=== PATIENT | female | born 1970 | race Caucasian/White ===

== ENCOUNTER 2023-09-04 15:41 | Inpatient (IN) | payer BC, MEDICAID, SELFPAY ==
--- NOTE | 2023-09-04 17:40 | PC.NURSE ---
This nurse assumed care of pt from EMS at 1737.
[2023-09-04 17:54] VITALS: BMI 40.6
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
[2023-09-04 18:44] VITALS: BP 196/100; PULSE 95; RESP 19; TEMP 36.9; O2SAT 96
--- NOTE | 2023-09-04 18:57 | USCV_ITS ---
Xavieralice Lisa Age: 52 Gender: F : 1970 Exam Date: 09/04/2023 20:02 Ordering Phys: Irvin Rudolph MD Technologist: LEX Exam Location: [facility] [facility] Indication: History non-alcoholic cirrhosis, anasarca, HTN, DM2, no history of cardiac intervention per patient. BP: 196 / 100 HR: 98 Rhythm: Sinus Technical Quality: Adequate MEASUREMENTS (Male / Female) Normal Values 2D ECHO LV Diastolic Diameter PLAX 4.8 cm 4.2 - 5.9 / 3.9 - 5.3 cm IVS Diastolic Thickness 1.8 cm 0.6 - 1.0 / 0.6 - 0.9 cm IVS Systolic Thickness 2.1 cm LVPW Diastolic Thickness 1.8 cm 0.6 - 1.0 / 0.6 - 0.9 cm LVPW Systolic Thickness 2.2 cm LVOT Diameter 2.3 cm LV Ejection Fraction 2D Teich 57.3 % LV Ejection Fraction MOD 2C 63.3 % LV Ejection Fraction 2C AL 63.9 % LA Diameter 4.3 cm LA Sys Volume AL 78.8 cm cubed LA Sys Volume Index AL 35.7 cm cubed/m squared Aorta at Sinotubular Diameter 2.9 cm IVC Diameter 1.0 cm M-MODE LA Ao Ratio MM 1.7 AV Cusp Separation MM 2.2 cm DOPPLER AV Peak Velocity 190.0 cm/s LVOT Peak Velocity 127.0 cm/s AV Area Cont Eq vti 3.1 cm squared AV Area Cont Eq pk 2.7 cm squared MV Peak Velocity 141.0 cm/s MV Area PHT 5.0 cm squared Mitral E to A Ratio 0.8 TR Peak Velocity 280.0 cm/s TR Peak Gradient 31.4 mmHg TV Peak E Velocity 71.0 cm/s Right Atrial Pressure 3.0 mmHg Pulmonary Artery Systolic Pressu 34.4 mmHg PV Peak Velocity 123.0 cm/s FINDINGS Left Ventricle Normal left ventricular size and systolic function, EF 50-55 mild diffuse hypokinesis the left ventricle . Right Ventricle The right ventricle is normal in size and function. Right Atrium The right atrium is normal in size. Left Atrium The left atrium is normal in size. Mitral Valve Trace mitral valve regurgitation. Aortic Valve No gross abnormalities noted Tricuspid Valve Trace tricuspid valve regurgitation. Pulmonic Valve Mild pulmonary valve regurgitation. Pericardium Small pericardial effusion. Aorta Normal ascending aorta dimension. IVC The inferior vena cava appears normal. CONCLUSIONS Normal left ventricular size and systolic function, EF 50-55 percent. Mild diffuse hypokinesis the left ventricle . Trace tricuspid valve regurgitation. Mild pulmonary valve regurgitation. Mild pulmonary valve regurgitation. Estimated pulmonary artery peak systolic pressure 34 mmHg There is no pericardial effusion. Pulmonary artery systolic pressure is within normal limits. No similar previous studies are available for comparison Dr Daija Cortes MD FAC (Electronically Signed) Final Date: 05 September 2023 13:53 S
[2023-09-04] MEDS: doxycycline 100 MG in sodium chloride 0.9% (plus) 100 ML IV (19:14)
[2023-09-04] MEDS: spironolactone 25 mg Tablet PO (19:14)
[2023-09-04] MEDS: enoxaparin 30 mg/0.3 mL Syringe SUBCUT (19:14)
[2023-09-04] MEDS: amlodipine 5 mg Tablet PO (19:14)
[2023-09-04 20:00] VITALS: BP 181/97; PULSE 102; RESP 20; TEMP 37.6; O2SAT 95
[2023-09-04 20:14] LABS: Adenovirus Not Detected (NOT DETECT); Chlamydia Pneumoniae Not Detected (NOT DETECT); Coronavirus 229E,HKU1,NL63,OC4 Not Detected (NOT DETECT); Human Metapneumovirus Not Detected (NOT DETECT); Human Rhinovirus/Enterovirus Not Detected (NOT DETECT); Influenza A Not Detected (NOT DETECT); Influenza A H1 Not Detected (NOT DETECT); Influenza A H1-2009 Not Detected (NOT DETECT); Influenza A H3 Not Detected (NOT DETECT); Influenza B Not Detected (NOT DETECT); Mycoplasma Pneumoniae Not Detected (NOT DETECT); Parainfluenza Virus Type 1 Not Detected (NOT DETECT); Parainfluenza Virus Type 2 Not Detected (NOT DETECT); Parainfluenza Virus Type 3 Not Detected (NOT DETECT); Parainfluenza Virus Type 4 Not Detected (NOT DETECT); Respiratory Syncytial Virus A Not Detected (NOT DETECT); Respiratory Syncytial Virus B Not Detected (NOT DETECT); SARS-COV-2 Not Detected (NOT DETECT)
[2023-09-04 21:18] LABS: Glucose Point of Care 121 mg/dL (70-110)
[2023-09-04 22:00] VITALS: PULSE 102
[2023-09-04 23:56] VITALS: BP 162/79; PULSE 99; RESP 18; TEMP 37.9; O2SAT 94
[2023-09-05] VITALS (9 sets, daily range): BP systolic 150–178; BP diastolic 81–95; PULSE 89–99; RESP 16–20; TEMP 36.4–37.7; O2SAT 94–96
[2023-09-05] MEDS: FUROsemide 10 mg/mL SDV 4mL 40 MG IVP ×2 (04:04→17:44)
[2023-09-05 05:59] LABS: Basophils % 0.4 %; Eosinophils # 0.1 10^3/uL (0.0-0.8); Eosinophils % 1.8 %; Hematocrit 26.9 % (36-47); Lymphocytes # 0.7 10^3/uL (0.8-4.8); Lymphocytes % 13.1 %; Mean Corpuscular HGB Conc 34.9 g/dL (30-55); Mean Corpuscular Volume 85.9 fl (85-98); Mean Platelet Volume 11.6 fL (7.4-10.4); Monocytes # 0.5 10^3/uL (0.2-0.9); Monocytes % 10.2 %; Neutrophils # 3.69 10^3/uL (1.8-7.7); Neutrophils % 74.1 %; Nucleated Red Blood Cells % 0 %; Platelet Count 99 10^3/cmm (157-399); Red Blood Count 3.13 10^6/uL (3.85-5.65); Red Cell Distribution Width 14.1 % (12.1-15.1); White Blood Count 4.98 10^3/uL (3.29-11.43)
[2023-09-05 06:10] LABS: INR 1.38 (0.8-1.2)
[2023-09-05 06:16] LABS: Alanine Aminotransferase 24 U/L (0-33); Albumin Level 2.4 g/dL (3.5-5.2); Alkaline Phosphatase 55 U/L (35-105); Anion Gap 14.1 (5-19); Aspartate Amino Transferase 55 U/L (0-32); Blood Urea Nitrogen 37 mg/dL (6-20); Calcium 7.8 mg/dL (8.5-10.5); Carbon Dioxide 22 mmol/L (22-29); Chloride 103 mmol/L (98-107); Creatinine Clr Calc Pharmacy 62.0758; Globulin 2.7 g/dL (1.3-4.6); Glomerular Filtration Rate 46.8 mL/min (90-130); Glucose 98 mg/dL (65-115); Magnesium 1.9 mg/dL (1.7-2.3); Osmolality Calculated 289 mOsm/kg (285-295); Potassium 4.1 mmol/L (3.5-5.1); Sodium 135 mmol/L (136-145); Total Bilirubin 1.1 mg/dL (0.15-1.2); Total Protein 5.1 g/dL (6.6-8.7)
[2023-09-05 06:18] LABS: Ammonia 42 umol/L (11-51)
[2023-09-05 06:37] LABS: Glucose Point of Care 115 mg/dL (70-110)
[2023-09-05] MEDS: doxycycline 100 MG in sodium chloride 0.9% (plus) 100 ML IV ×2 (06:40→17:44)
[2023-09-05 07:39] LABS: Estmated Average Glucose 88; Hemoglobin A1C 4.7 % (4.0-6.0)
[2023-09-05] MEDS: budesonide 0.5 mg/2 mL Neb 0.25 MG INHALATION ×2 (07:45→20:41)
[2023-09-05] MEDS: spironolactone 25 mg Tablet PO (08:26)
[2023-09-05] MEDS: amlodipine 5 mg Tablet PO (08:26)
[2023-09-05] MEDS: lactulose oral liq 20 gm/30 mL UDC PO (08:26)
[2023-09-05] MEDS: fluticasone nasal spray 16gm Btl 2 SPRAY INTRANASAL (08:27)
[2023-09-05] MEDS: cefTRIAXone 1,000 MG in sodium chloride 0.9% (plus) 50 ML 100 MG IV (08:27)
--- NOTE | 2023-09-05 09:11 | PC.CHAP ---
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 [] Patient/Family/Request visit [] Outpatient visit [] Follow-up visit [] Physician referral [] Code/Alert [] Routine visit [] Staff referral [] Actively dying [] Patient sleeping [] Family support [] [] Out of room [] Palliative care [] [x] Receiving care in room [] Pre-surgical visit [] Trauma [] Long length of stay [] ICU visit [] Other: Relational/Emotional Strength [] Patient feels connected with others/family/visitors/staff [] Distress [] Loneliness/isolation [] Abandonment Spirituality of Patient [] Person of Daja [] Attends Muslim of their Daja [] Believes in Prayer [] Reads Bible or Worship materials [] There are Spiritual issues to be addressed 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 Engineer Interventions [] Prayer [] Active listening [] Non-anxious presence [] Spiritual/emotional support [] Crisis/trauma care [] Spiritual counseling [] Bereavement support [] Provided bereavement packet [] Provided Bible/devotional materials [] Provided toy/stuffed animal, coloring book to patient or family member [] Provided Communion [] Anointing/Ethan [] Salvation [] Completed spiritual assessment [] Other: Impact on Illness or Injury [] Angry [] Fearful [] Anxious [] Often cries [] Exhaustion [] Unable to work [] Unable to attend presybeterian [] Unable to walk/stand [] Unable to read [] Unable to drive [] Unable to eat/drink [] Unable to sleep [] Unable to be with family [] Patient intubated [] Other: Summary Time spent with patient
--- NOTE | 2023-09-05 10:22 | ECG_ITS ---
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 Measurements Intervals [place] Rate: 85 P: 19 NM: 128 QRS: 4 QRSD: 98 T: -6 QT: 385 QTc: 459 Interpretive Statements SINUS RHYTHM NONSPECIFIC T-WAVE ABNORMALITY No previous ECG available for comparison Electronically Signed On 09-05-2023 22:13:01 CDT by Daija Cortes M.D. [id number]
[2023-09-05 11:27] LABS: Glucose Point of Care 126 mg/dL (70-110)
[2023-09-05] MEDS: benzonatate 100 mg Capsule PO (12:21)
[2023-09-05 17:06] LABS: Glucose Point of Care 134 mg/dL (70-110)
[2023-09-05] MEDS: enoxaparin 30 mg/0.3 mL Syringe SUBCUT (17:44)
--- NOTE | 2023-09-05 17:56 | USR_ITS ---
PROCEDURE INFORMATION: Exam: US Abdomen; Limited Exam date and time: 09/05/2023 3:13 AM Age: 52 years old Clinical indication: Bloating; Additional info: Assess for ascites TECHNIQUE: Imaging protocol: Real time ultrasound of the abdomen with image documentation. Limited exam focused on the region of clinical interest. COMPARISON: No relevant prior studies available. FINDINGS: Liver: The liver has a nodular contour and there is relative hypertrophy of the caudate lobe, consistent with cirrhosis. Aliasing at the hiral hepatis. Liver is enlarged measuring 19 cm. Diffuse increase in hepatic parenchymal echogenicity, consistent with fatty infiltration. The liver is otherwise unremarkable. Gallbladder: Multiple calcified gallstones are present. Gallbladder has the wall echo shadow sign. Gallbladder wall thickened at 5 mm. Gallbladder sludge. Sonographic Montiel sign is negative. Biliary ducts: There is no evidence of biliary ductal dilation. CBD measures 0.5 cm. Right kidney: Right kidney measures 10.7 cm in length. The right kidney is normal. Intraperitoneal space: There is a large amount of free intraperitoneal fluid present. Portal venous: Hepatopetal portal flow. US/US abdomen limited [id number] IMPRESSION: 1. Large volume ascites. 2. Cirrhosis, hepatomegaly, and hepatic steatosis. 3. Cholelithiasis and gallbladder wall thickening related to chronic interstitial third-spacing from underlying hepatocellular disease. Cholecystitis felt less likely considering a negative Montiel sign. Consider correlation with HIDA scan.
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
[2023-09-05 20:26] LABS: Glucose Point of Care 150 mg/dL (70-110)
[2023-09-05] MEDS: albumin 25 G/100 ML BAG 60 G IV (20:31)
[2023-09-05] MEDS: insulin lispro 100 unit/1 mL SUBCUT (21:34)
[2023-09-06] VITALS (8 sets, daily range): BP systolic 167–186; BP diastolic 75–98; PULSE 85–101; RESP 14–18; TEMP 36.3–36.8; O2SAT 95–100
[2023-09-06 04:05] LABS: Glucose Point of Care 102 mg/dL (70-110)
[2023-09-06] MEDS: albumin 25 G/100 ML BAG 60 G IV ×3 (04:49→20:51)
[2023-09-06] MEDS: FUROsemide 10 mg/mL SDV 4mL 60 MG IVP ×2 (04:50→17:46)
[2023-09-06 06:23] LABS: Glucose Point of Care 115 mg/dL (70-110)
[2023-09-06] MEDS: doxycycline 100 MG in sodium chloride 0.9% (plus) 100 ML IV ×2 (06:37→17:54)
[2023-09-06] MEDS: budesonide 0.5 mg/2 mL Neb 0.25 MG INHALATION ×2 (07:19→20:15)
[2023-09-06] MEDS: albuterol 2.5 mg/3 mL Neb INHALATION (07:19)
[2023-09-06 07:44] LABS: Basophils % 0.8 %; Eosinophils # 0.2 10^3/uL (0.0-0.8); Eosinophils % 5.1 %; Hematocrit 25.3 % (36-47); Lymphocytes # 0.6 10^3/uL (0.8-4.8); Lymphocytes % 14.7 %; Mean Corpuscular Hemoglobin 29.1 pg (27-33); Mean Corpuscular Volume 85.5 fl (85-98); Mean Platelet Volume 11.3 fL (7.4-10.4); Monocytes # 0.4 10^3/uL (0.2-0.9); Monocytes % 10.3 %; Neutrophils # 2.65 10^3/uL (1.8-7.7); Neutrophils % 68.1 %; Nucleated Red Blood Cells % 0 %; Platelet Count 91 10^3/cmm (157-399); Red Blood Count 2.96 10^6/uL (3.85-5.65); Red Cell Distribution Width 14.1 % (12.1-15.1); White Blood Count 3.89 10^3/uL (3.29-11.43)
[2023-09-06 07:52] LABS: Alanine Aminotransferase 22 U/L (0-33); Alkaline Phosphatase 50 U/L (35-105); Anion Gap 14.9 (5-19); Aspartate Amino Transferase 50 U/L (0-32); Blood Urea Nitrogen 35 mg/dL (6-20); Calcium 8.2 mg/dL (8.5-10.5); Carbon Dioxide 22 mmol/L (22-29); Chloride 102 mmol/L (98-107); Creatinine Clr Calc Pharmacy 62.3367; Globulin 2.3 g/dL (1.3-4.6); Glomerular Filtration Rate 46.8 mL/min (90-130); Glucose 101 mg/dL (65-115); Magnesium 1.9 mg/dL (1.7-2.3); Osmolality Calculated 288 mOsm/kg (285-295); Potassium 3.9 mmol/L (3.5-5.1); Sodium 135 mmol/L (136-145); Total Protein 5.3 g/dL (6.6-8.7)
[2023-09-06] MEDS: spironolactone 25 mg Tablet PO (09:57)
[2023-09-06] MEDS: amlodipine 5 mg Tablet PO (09:57)
[2023-09-06] MEDS: lactulose oral liq 20 gm/30 mL UDC PO (09:57)
[2023-09-06] MEDS: cefTRIAXone 1,000 MG in sodium chloride 0.9% (plus) 50 ML 100 MG IV (09:57)
[2023-09-06] MEDS: fluticasone nasal spray 16gm Btl 2 SPRAY INTRANASAL (09:58)
[2023-09-06] MEDS: acetaminophen 325 mg Tablet 650 MG PO (10:13)
--- NOTE | 2023-09-06 10:42 | ECG_ITS ---
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 Measurements Intervals [place] Rate: 88 P: 60 OR: 171 QRS: 19 QRSD: 94 T: 9 QT: 378 QTc: 458 Interpretive Statements SINUS RHYTHM NONSPECIFIC T-WAVE ABNORMALITY Compared to ECG 09/05/2023 10:22:55 No significant changes Electronically Signed On 09-06-2023 19:43:53 CDT by Willam Carr M.D. [id number]
--- NOTE | 2023-09-06 10:47 | US_ITS ---
WS: [id number] ULTRASOUND-GUIDED PARACENTESIS CLINICAL INFORMATION: ascites COMPARISON: None. Procedure Informed consent: The risks, benefits, and alternatives of the procedure were discussed with the sammy ent. Verbal and written consent was obtained. Timeout: A timeout was performed to confirm the correct patient, procedure, and site. Preparation: A suitable skin site was identified. The patient was prepped and draped in usual sterile fashion. Lidocaine 1% was used for local anesthesia. Catheter: 4 Tristanian One-step Yueh catheter. Side: LEFT lower quadrant. Fluid Volume: 750 ml Color: Clear yellow Complications: None. US/US paracentesis abd w [id number] IMPRESSION: Uncomplicated ultrasound-guided paracentesis. Removal of 750 cc
[2023-09-06 11:19] LABS: Glucose Point of Care 135 mg/dL (70-110)
--- NOTE | 2023-09-06 13:45 | PC.NURSE ---
Notified Dr. Rudolph of BP 182/98. Due to upcoming paracentesis no treatment ordered.
--- NOTE | 2023-09-06 15:05 | PC.NURSE ---
TIME OUT COMPLETED FOR PARACENTESIS AT 1505. DR. MARK OLIVA, AND THIS RN PRESENT. ALL AGREE.
--- NOTE | 2023-09-06 15:57 | PC.NURSE ---
750ml out total from para
[2023-09-06 16:46] LABS: Glucose Point of Care 133 mg/dL (70-110)
[2023-09-06 16:56] LABS: Apprearance, Body Fluid CLEAR; Color, Body Fluid PALE YELLOW; Cyto Order Verification No Order
[2023-09-06 17:20] LABS: Body Fluid Polynuclear #Cells 0.017; Body Fluid WBC 226 /uL; Monocytes # Body Fluid 0.209; RBC, Body Fluid 0 10^3/uL
[2023-09-06 17:36] LABS: Albumin Body Fluid 0.7 g/dL; PATH Referral YES
--- NOTE | 2023-09-06 20:04 | US_ITS ---
WS: [id number] ULTRASOUND ABDOMEN LIMITED CLINICAL INFORMATION: Large ascites COMPARISON: 09/05/2023 FINDINGS: Four-quadrant ultrasound. Moderate abdominal ascites US/US abdomen lmt fluid [id number] IMPRESSION: See above
[2023-09-06 21:16] LABS: Glucose Point of Care 152 mg/dL (70-110)
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
[2023-09-07] VITALS (7 sets, daily range): BP systolic 156–164; BP diastolic 78–79; PULSE 85–101; RESP 16–18; TEMP 36.7–37.1; O2SAT 93–98
[2023-09-07] MEDS: FUROsemide 10 mg/mL SDV 4mL 60 MG IVP (04:33)
[2023-09-07] MEDS: albumin 25 G/100 ML BAG 60 G IV (05:14)
[2023-09-07 05:18] LABS: Basophils % 0.9 %; Eosinophils # 0.2 10^3/uL (0.0-0.8); Eosinophils % 5.1 %; Hematocrit 25.3 % (36-47); Lymphocytes # 0.6 10^3/uL (0.8-4.8); Lymphocytes % 12.7 %; Mean Corpuscular HGB Conc 33.6 g/dL (30-55); Mean Corpuscular Hemoglobin 29.3 pg (27-33); Mean Corpuscular Volume 87.2 fl (85-98); Mean Platelet Volume 11.1 fL (7.4-10.4); Monocytes # 0.4 10^3/uL (0.2-0.9); Monocytes % 9.3 %; Neutrophils # 3.05 10^3/uL (1.8-7.7); Neutrophils % 70.6 %; Nucleated Red Blood Cells % 0 %; Platelet Count 103 10^3/cmm (157-399); Red Cell Distribution Width 14.1 % (12.1-15.1); White Blood Count 4.32 10^3/uL (3.29-11.43)
[2023-09-07 05:43] LABS: Alanine Aminotransferase 21 U/L (0-33); Albumin Level 3.1 g/dL (3.5-5.2); Alkaline Phosphatase 50 U/L (35-105); Aspartate Amino Transferase 47 U/L (0-32); Blood Urea Nitrogen 33 mg/dL (6-20); Calcium 8.2 mg/dL (8.5-10.5); Carbon Dioxide 23 mmol/L (22-29); Chloride 105 mmol/L (98-107); Globulin 2.3 g/dL (1.3-4.6); Glomerular Filtration Rate 57.8 mL/min (90-130); Glucose 104 mg/dL (65-115); Osmolality Calculated 294 mOsm/kg (285-295); Sodium 138 mmol/L (136-145); Total Bilirubin 0.9 mg/dL (0.15-1.2); Total Protein 5.4 g/dL (6.6-8.7)
[2023-09-07 06:33] LABS: Glucose Point of Care 114 mg/dL (70-110)
[2023-09-07] MEDS: fluticasone nasal spray 16gm Btl 2 SPRAY INTRANASAL (08:09)
[2023-09-07] MEDS: doxycycline 100 MG in sodium chloride 0.9% (plus) 100 ML IV (08:09)
[2023-09-07] MEDS: spironolactone 25 mg Tablet PO (08:09)
[2023-09-07] MEDS: amlodipine 5 mg Tablet PO (08:09)
[2023-09-07] MEDS: lactulose oral liq 20 gm/30 mL UDC PO (08:09)
[2023-09-07] MEDS: cefTRIAXone 1,000 MG in sodium chloride 0.9% (plus) 50 ML 100 MG IV (08:10)
[2023-09-07] MEDS: albuterol 2.5 mg/3 mL Neb INHALATION (08:15)
[2023-09-07] MEDS: budesonide 0.5 mg/2 mL Neb 0.25 MG INHALATION (08:15)
--- NOTE | 2023-09-07 10:00 | ECG_ITS ---
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 Measurements Intervals [place] Rate: 89 P: 48 [place]: 169 QRS: 1 QRSD: 95 T: 2 QT: 378 QTc: 462 Interpretive Statements SINUS RHYTHM POSSIBLE ANTERIOR MYOCARDIAL INFARCTION , PROBABLY OLD [30 ms Q WAVE IN V3/V4, OR R < 0.2 mV IN V4] Compared to ECG 09/06/2023 10:42:51 Myocardial infarct finding now present T-wave abnormality no longer present Electronically Signed On 09-07-2023 11:00:54 CDT by Tomas Bates M.D. [email or web address] adult care [email or web address] [email or web address] [id number]
[2023-09-07 11:34] LABS: Glucose Point of Care 133 mg/dL (70-110)
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
--- NOTE | 2023-09-07 12:38 | PC.NURSE ---
Pt discharges with [facility] due to [facility] being closed for 06 of September.
--- NOTE | 2023-09-07 14:41 | PC.NURSE ---
Pt medications verbally called in to [facility]
== END 2023-09-07 12:40 | disposition home or self-care (01) | DRG 291 ==
PROVIDERS: Admitting Provider Internal Medicine; Visit Provider Internal Medicine
DX: I11.0 Hypertensive heart disease with heart failure (principal); I50.43 Acute on chronic combined systolic (congestive) and diastolic (congestive) heart failure; J18.9 Pneumonia, unspecified organism; N17.9 Acute kidney failure, unspecified; E87.1 Hypo-osmolality and hyponatremia; R18.8 Other ascites; E11.9 Type 2 diabetes mellitus without complications; Z79.4 Long term (current) use of insulin; K72.90 Hepatic failure, unspecified without coma; K74.60 Unspecified cirrhosis of liver; D69.6 Thrombocytopenia, unspecified; R94.31 Abnormal electrocardiogram [ECG] [EKG]
CPT/HCPCS: 36415; 36416; 49083; 76705; 80053; 80503; 82042; 82140; 82962; 83036; 83735; 85025; 85610; 86403; 87070; 87075; 87205; 87449; 87486; 87581; 87633; 89050; 93005; 93306; 94640; 94760; 96372; J0696; J1650; J1815; J1940; J3490; J7613; J7626; P9046

== ENCOUNTER → 2023-09-15 11:13 | Outpatient (BNVA) | payer BC, MEDICAID, SELFPAY | DX: I50.9 Heart failure, unspecified (principal); E11.9 Type 2 diabetes mellitus without complications; K72.90 Hepatic failure, unspecified without coma; K74.60 Unspecified cirrhosis of liver | CPT/HCPCS: 80053; 80061; 83880; 85025; 85610; 86705; 86706; 86709; 86803; 87340; 87522 ==